=== PATIENT | male | born 1995 | race Caucasian/White ===

== ENCOUNTER 2016-04-26 00:21 | Emergency (ER) | payer BC, MEDICAID ==
[~2016-04-26] VITALS: Ht 177.8 cm; Wt 66.0 kg
[~2016-04-26 00:21] MED LIST: IBUP800T23 PO
[2016-04-26 00:26] VITALS: BP 140/88; PULSE 97; RESP 15; TEMP 97.6; O2SAT 98
[2016-04-26] MEDS ORDERED: BUPIVACAINE HCL PF 0.5% 10 ML VIAL INFIL ONE (01:00)
[2016-04-26] MEDS ORDERED: LIDOCAINE HCL 1% 50 ML VIAL INFIL ONE (01:00)
--- NOTE | 2016-04-26 01:03 | PD ---
HPI Chief Complaint: Laceration/Skin Injury Time Seen by Provider: 01:00 Travel History International Travel<30 days: No Contact w/Intl Traveler<30days: No Traveled to known affect area: No History of Present Illness HPI Patient comes in for evaluation to his right ring finger that occurred shortly prior to arrival. Patient states he applied pressure with toilet paper prior to coming to the emergency department. Patient is uncertain of his last tetanus shot. Patient states that he was throwing a broken bottle when it accidentally cut his finger. Patient having burning pain around the site of the laceration that is worse to palpation. Denies any numbness or tingling or decreased range of motion. PFSH Past Medical History ADHD: No Anxiety: Yes Cancer: No Cardiovascular Problems: No Diabetes: No Diminished Hearing: No Genitourinary: No Headaches: No Immune Disorder: No Musculoskeletal: No Psychiatric: Yes (Treated at [facility] x2) Reproductive: No Respiratory: Yes (ASTHMA) Migraines: No Seizures: No Thyroid Disease: No Ulcer: No Tetanus Vaccination: Unknown Influenza Vaccination: No Past Surgical History Surgical History: No Previous Surgery Other Surgery: No Social History Alcohol Use: Yes (SOCIALLY) Tobacco Use: Yes (1/2PPD) Substance Use: No Allergies-Medications (Allergen,Severity, Reaction): Coded Allergies: Varicella Vaccine (Verified Allergy, Unknown, , 04/26/16) Uncoded Allergies: CHICEN POX VACCINE (Allergy, Severe, 04/07/03) CHICKEN POX VACCINE (Allergy, Unknown, 04/26/16) Reported Meds & Prescriptions Reported Meds & Active Scripts Active No Active Prescriptions or Reported Medications Review of Systems Except as stated in HPI: all other systems reviewed are Neg Physical Exam Narrative GENERAL: Well-developed, well nourished, in no acute distress, and non-ill appearing. SKIN: Warm and dry. Laceration on the palmar surface right ring finger distal phalanx. There is no foreign body noted. Appears relatively superficial. Patient is neurologically intact distally and has full range of motion. HEAD: Atraumatic. Normocephalic. EYES: Pupils equal and round. EOMI. No scleral icterus. No injection or drainage. ENT: No nasal bleeding or discharge. Mucous membranes pink and moist. NECK: Trachea midline. Supple. No nuclear rigidity. CARDIOVASCULAR: Capillary refill less than 2 seconds. RESPIRATORY: No accessory muscle use. No respiratory distress. MUSCULOSKELETAL: No obvious deformities. No clubbing. No cyanosis. No edema. Full range of motion. NEUROLOGICAL: Awake and alert. No obvious cranial nerve deficits. Motor grossly within normal limits. Normal speech. PSYCHIATRIC: Appropriate mood and affect; insight and judgment normal. Data Data Last Documented VS Vital Signs Date Time Temp Pulse Resp B/P Pulse Ox O2 Delivery O2 Flow Rate FiO2 04/26/16 00:54 16 04/26/16 00:26 97.6 97 140/88 98 Room Air Orders Bupivacaine Pf 0.5% Inj (Marcaine Pf 0.5 (04/26/16 01:00) Lidocaine 1% Inj (50 Ml) (Xylocaine 1% I (04/26/16 01:00) Tetanus/Diphtheria Tox Adult (Tetanus/Di (04/26/16 01:15) MDM Medical Decision Making Medical Screen Exam Complete: Yes Emergency Medical Condition: Yes Differential Diagnosis Laceration, abrasion, contusion, other Narrative Course The patient suffered laceration to the finger. There was no evidence to suggest foreign bodies by history and exam. Visual and tactile exams were unremarkable. There was no evidence of neurovascular injury. The patient had a normal distal vascular exam, and had full normal motor and sensory exams. There was also no evidence or tendon injury, with normal distal full range of motions, flexion, extension, abduction, adduction and opponens. There was no evidence of local joint space involvement at this time. The patient was irrigated with copious sterile normal saline and primary repair was performed. Please see procedure note. The patient was given signs and symptom warnings for infection, such as increasing pain, redness, swelling, associated heat, pus or fever. The patient was warned of possible unseen foreign body and instructed to return immediately if signs or symptoms develop. The patient was given instructions for timely follow up. The patient agreed with plan of care. Patient in no obvious distress upon re-evaluation. Any questions/concerns in reference to patient diagnosis/condition discussed and clarified prior to patient's discharge. Reinforced sheer importance of close follow up with patient 's primary physician or primary care clinic. Instructed patient to return to ED immediately, if symptoms return/worsen. Pt showed understanding of above instructions. Further instructions and recommendations were detailed in discharge paperwork. Pt ambulated without difficulty out of ED at discharge. Procedures Procedure Narrative LACERATION REPAIR LOCATION: Ricks surface of right ring finger distal phalanx LENGTH: Approximately 1.5 cm in total length NUMBER OF STITCHES/BHARATI: 2 REPAIR: Verbal consent was obtained. The area of the laceration was cleaned and prepped. Digital block was performed using a mixture of lidocaine without epi and Marcaine without epi. The wound was copiously irrigated and explored without evidence of foreign body, bony involvement, ligament injury, tendon injury, or neurovascular injury. The wound was closed using 5-0 Vicryl. This was a single layer repair. A sterile dressing was applied by nurse. The patient was advised to keep the affected area as clean and dry as possible using soap and water. There were no complications. Patient tolerated the procedure well. Diagnosis Primary Impression: Finger laceration Qualified Code: S61.219A - Finger laceration, initial encounter Patient Instructions: Care For Your Absorbable Stitches (ED), Finger Laceration (ED), General Instructions Additional Instructions: Follow-up with your primary care physician next week for evaluation. Keep wound dry and clean as possible using soap and water. Do not soak or submerge wound. Return to the emergency department if symptoms get worse. Scripts No Active Prescriptions or Reported Meds Disposition: 01 DISCHARGE HOME Condition: Stable Gilberto Ellis Apr 26, 2016 01:03
[2016-04-26] MEDS ORDERED: TETANUS/DIPHTHERIA TOXOID ADULT 0.5 ML VIAL IM ONE (01:15)
== END 2016-04-26 02:08 | disposition home or self-care (01) ==
LOC: NEPB 00:21
DX: S61.214A Laceration without foreign body of right ring finger without damage to nail, initial encounter (principal); J45.909 Unspecified asthma, uncomplicated; F17.210 Nicotine dependence, cigarettes, uncomplicated; W25.XXXA Contact with sharp glass, initial encounter; Z23 Encounter for immunization
CPT/HCPCS: 12001; 90471; 90714